=== PATIENT | male | born 1955 | race Caucasian/White ===

== ENCOUNTER 2016-09-28 19:31 | Emergency (ER) | payer OTHER ==
[2016-09-28 19:44] VITALS: BP 133/99
[2016-09-28] MEDS ORDERED: Lidocaine 1% with EPINEPHrine 1:100,000 50 ML MDV INFILT ONE (20:25)
[2016-09-28] MEDS ORDERED: Bacitracin Oint 1 GM U/D Packet TOP ONE (21:56)
--- NOTE | 2016-09-28 22:13 | EDM.PDOC ---
[id number] PAIN Time Seen by Provider: 09/28/16 20:23 Source: Reports: Patient, RN notes reviewed History Limitations: Reports: No limitations - History of Present Illness INITIAL COMMENTS - FREE TEXT/NARRATIVE: Here with his Chief complaint Chainsaw injury left knee HPI 60-year-old male with clearing trees on his property at home when he accidentally touched a chainsaw to his left knee. It cut through his pants. Immunization status up to date Minimal bleeding and minimal pain from the left knee, still able to weight-bear. No other injuries. - Related Data Allergies Allergy/AdvReac Type Severity Reaction Status Date / Time peanut Allergy Severe Swelling Verified 08/21/14 11:26 strawberry Allergy Severe Swelling Verified 08/21/14 11:26 venom-honey bee Allergy Severe Seizure Verified 08/21/14 11:26 [bee venom (honey bee)] *root vegetables Allergy Severe Swelling Uncoded 08/21/14 11:26 Home Meds: Ambulatory Orders Medication Instructions Recorded Confirmed Benazepril/Hydrochlorothiazide 1 tab PO DAILY 02/16/14 09/28/16 [Benazepril-HCTZ 20-12.5 MG] EPINEPHrine [Epipen] 0.3 mg IM ASDIRECTED PRN 02/16/14 09/28/16 Latanoprost [Latanoprost] 1 drop IO BEDTIME 02/16/14 09/28/16 Omeprazole [Omeprazole] 1 cap PO DAILY PRN 02/16/14 09/28/16 Timolol Maleate 1 drop IO DAILY 02/16/14 09/28/16 Aspirin [Children's Aspirin] 81 mg PO DAILY 08/21/14 09/28/16 Hydrocodone/Acetaminophen 12 each PO Q4H PRN #10 tablet 09/28/16 [Hydrocodon-Acetaminophen 5-325] Past Medical History Cardiovascular History: Reports: High cholesterol Gastrointestinal History: Reports: GERD Psychiatric History: Reports: Depression Dermatologic History: Reports: Eczema, Psoriasis - Past Surgical History GI Surgical History: Reports: Hernia, inguinal Social & Family History - Tobacco Use Smoking Status *Q: Never Smoker Second Hand Smoke Exposure: No - Caffeine Use Caffeine Use: Reports: Coffee, Soda, Tea - Alcohol Use Days Per Week of Alcohol Use: 0 - Recreational Drug Use Recreational Drug Use: No ED ROS GENERAL - Review of Systems Review Of Systems: ROS reveals no pertinent complaints other than HPI. GI/Abdominal: Reports: No symptoms Skin: Reports: other (Laceration left knee) Neurological: Reports: No Symptoms ED EXAM, SKIN/RASH Exam: See Below Exam Limited By: No limitations General Appearance: alert, no apparent distress (First), other ( mild tachycardia, aapprehensive about being here but no difficulty speaking or breathing and his mood is normal) Respiratory/Chest: no respiratory distress, no accessory muscle use Cardiovascular: regular rate, rhythm, tachycardia Extremities: other (Wound, see below, left knee) Neurological: alert, oriented, no motor/sensory deficits Skin: Other (7 cm regular laceration over the anterior aspect of the left patella. Normal range of motion.Normal distal sensation capillary refill. No edema.) Lymphatic: no adenopathy ED SKIN PROCEDURES - Additional/Other Procedure(s) Other (Free Text) Procedure(s): Cleaning/Department of laceration left knee Wound was infiltrated with 1% lidocaine with epinephrine total 10 mL Wound cleansed with Hibiclens and Water by RN and then inspected by myself. Wound is into subcutaneous fat but there is no disruption of the fascia below the fat, no compromise of the joint or bursal space. No tendon or vascular involvement. Some shreds of skin were divided using sharp scissors. Wound closed with bacitracin and dressing, no sutures to to the right in nature and risk of infection Procedure a cleaning well tolerated by patient Course - Vital Signs Last Recorded V/S: Last Vital Signs Temp 36.6 C 09/28/16 19:40 Pulse 120 H 09/28/16 19:40 Resp 18 09/28/16 19:40 BP 133/99 H 09/28/16 19:40 Pulse Ox 96 09/28/16 19:40 - Orders/Labs/Meds Orders: Active Orders 24 hr Category Date Time Status [facility]INA Bandage [Elastic Wrap] [OM.PC] Routine Oth 09/28/16 20:45 Ordered Meds: Medications Discontinued Medications Generic Name Dose Route Start Last Admin Trade Name Freq PRN Reason Stop Dose Admin Bacitracin 1 dose 09/28/16 21:56 09/28/16 22:11 Bacitracin Oint 1 Gm TOP 09/28/16 21:57 1 dose ONETIME ONE Administration Lidocaine/Epinephrine 10 ml 09/28/16 20:25 09/28/16 21:29 Xylocaine 1% With Epinephrine 1:100,000 INFILT 09/28/16 20:26 5 ml ONETIME ONE Administration - Re-Assessments/Exams Free Text/Narrative Re-Assessment/Exam: 09/28/16 23:52 60-year-old male with laceration to left knee by chaseaw. Some contamination of the wound with dirt and oil, cleansed under anesthesia, see procedure note above. Dressed per RN. Daily wound care, see instructions below. No preventive antibiotics but should get rechecked promptly if signs of infection occur Prescribed some hydrocodone tablets in case he develops significant pain later. Departure - Departure Time of Disposition: 22:11 Disposition: Home, Self-Care 01 Condition: good Clinical Impression: Laceration of left knee without foreign body Qualifiers: Encounter type: initial encounter Qualified Code(s): S81.012A - Laceration without foreign body, left knee, initial encounter Prescriptions: Hydrocodone/Acetaminophen [Hydrocodon-Acetaminophen 5-325] 12 each PO Q4H PRN # 10 tablet PRN Reason: Moderate to severe pain Instructions: Laceration Care, Adult, [id number] Referrals: Wong Uriarte PA-C [Primary Care Provider] - Forms: ED Department Discharge Additional Instructions: Change dressing daily Wash wound at least once daily, his bandages 3 change and wash more often. Have the wound rechecked by her physician within the next week Return to emergency if you have significant pain, increased swelling, red streaks going up the leg, bad over from the wound or cloudy discharge from the wound. - My Orders Last 24 Hours: My Active Orders 09/28/16 20:45 VALENTINA Bandage [Elastic Wrap] [OM.PC] Routine - Assessment/Plan Last 24 Hours: My Active Orders 09/28/16 20:45 VALENTINA Bandage [Elastic Wrap] [OM.PC] Routine
== END 2016-09-28 22:25 | disposition home or self-care (01) ==
LOC: JP.ED 19:31
DX: S81.012A Laceration without foreign body, left knee, initial encounter (principal); K21.9 Gastro-esophageal reflux disease without esophagitis; F32.9 Major depressive disorder, single episode, unspecified; E78.00 Pure hypercholesterolemia, unspecified; Z98.890 Other specified postprocedural states; Z79.82 Long term (current) use of aspirin; Z79.899 Other long term (current) drug therapy; Z91.010 Allergy to peanuts; Z91.018 Allergy to other foods; Z91.030 Bee allergy status; W29.3XXA Contact with powered garden and outdoor hand tools and machinery, initial encounter; Y92.009 Unspecified place in unspecified non-institutional (private) residence as the place of occurrence of the external cause
CPT/HCPCS: 99283; A4217

== ENCOUNTER 2020-09-15 18:10 | Emergency (ER) | payer OTHER ==
[2020-09-15 18:27] VITALS: PULSE 84
[2020-09-15] MEDS ORDERED: Ketorolac 60 MG/2 ML SDV IM ONE (18:39)
[2020-09-15] MEDS ORDERED: Cyclobenzaprine 10 MG Tab PO ONE (18:39)
--- NOTE | 2020-09-15 18:43 | EDM.PDOC ---
ED HPI GENERAL MEDICAL PROBLEM - General Chief Complaint: Back Pain or Injury Stated Complaint: RIGHT HIP PAIN Time Seen by Provider: 09/15/20 18:34 Source of Information: Reports: Patient, Family, RN Notes Reviewed History Limitations: Reports: No Limitations - History of Present Illness INITIAL COMMENTS - FREE TEXT/NARRATIVE: 64-year-old gentleman presents emergency department day complaint of low back hip pain on the right side, he admits that he did do a lot of work on Tuesday little bit on Tuesday and went out to do some more work sudden onset of pain he felt like it sudden spasm to the point where he is having difficulty ambulating. Does have a strong family history of abdominal aorta aneurysm underwent ultrasound per his report couple years ago which was negative but he would like to have that evaluated as well. - Related Data Allergies Allergy/AdvReac Type Severity Reaction Status Date / Time peanut Allergy Severe Swelling Verified 08/21/14 11:26 strawberry Allergy Severe Swelling Verified 08/21/14 11:26 venom-honey bee Allergy Severe Seizure Verified 08/21/14 11:26 [bee venom (honey bee)] *root vegetables Allergy Severe Swelling Uncoded 08/21/14 11:26 Home Meds: Home Meds Benazepril/Hydrochlorothiazide [Benazepril-HCTZ 20-12.5 MG] 1 tab PO DAILY 02/16/14 [History] EPINEPHrine [Epipen] 0.3 mg IM ASDIRECTED PRN 02/16/14 [History] Latanoprost 1 drop IO BEDTIME 02/16/14 [History] Omeprazole 1 cap PO DAILY PRN 02/16/14 [History] Timolol Maleate 1 drop IO DAILY 02/16/14 [History] Aspirin [Children's Aspirin] 81 mg PO DAILY 08/21/14 [History] Sertraline [Zoloft] 25 mg PO DAILY 09/15/20 [History] Past Medical History HEENT History: Reports: Impaired Vision Cardiovascular History: Reports: High Cholesterol Gastrointestinal History: Reports: GERD Psychiatric History: Reports: Depression Dermatologic History: Reports: Eczema, Psoriasis - Infectious Disease History Infectious Disease History: Reports: Chicken Pox, Measles, Mumps - Past Surgical History GI Surgical History: Reports: Hernia, Inguinal Social & Family History - Tobacco Use Tobacco Use Status *Q: Never Tobacco User - Caffeine Use Caffeine Use: Reports: Coffee - Recreational Drug Use Recreational Drug Use: No Review of Systems - Review of Systems Review Of Systems: See Below Constitutional: Reports: No Symptoms Respiratory: Reports: No Symptoms Cardiovascular: Reports: No Symptoms GI/Abdominal: Reports: No Symptoms Musculoskeletal: Reports: Joint Pain (Hip pain) ED EXAM, GENERAL - Physical Exam Exam: See Below Free Text/Narrative:: Examination hip he does have some point tenderness low back buttocks region right side flexion and extension do not elicit any pain but however he is tender with internal and external rotation Exam Limited By: No Limitations General Appearance: Alert, WD/WN, No Apparent Distress Respiratory/Chest: No Respiratory Distress GI/Abdominal: Soft, Non-Tender, No Distention, No Mass Course - Vital Signs Last Recorded V/S: Last Vital Signs Temp 97.8 F 09/15/20 19:28 Pulse 84 09/15/20 19:28 Resp 18 09/15/20 19:28 BP 132/95 H 09/15/20 19:28 Pulse Ox 96 09/15/20 19:28 - Orders/Labs/Meds Labs: Laboratory Tests 09/15/20 Range/Units 18:54 D-Dimer, Quantitative 366.87 (0.0-500.0) ng/mL Meds: Medications Discontinued Medications Generic Name Dose Route Start Last Admin Trade Name Freq PRN Reason Stop Dose Admin Cyclobenzaprine HCl 10 mg 09/15/20 18:39 09/15/20 18:51 Cyclobenzaprine 10 Mg Tab PO 09/15/20 18:40 10 mg ONETIME ONE Administration Ketorolac Tromethamine 60 mg 09/15/20 18:39 09/15/20 18:51 Ketorolac 60 Mg/2 Ml Sdv IM 09/15/20 18:40 60 mg ONETIME ONE Administration Departure - Departure Time of Disposition: 20:07 Disposition: Home, Self-Care 01 Condition: Fair Clinical Impression: Right hip pain - Discharge Information Instructions: Musculoskeletal Pain Referrals: Juancho Colmenares NP [Primary Care Provider] - Forms: ED Department Discharge Additional Instructions: Continue to use the Toradol as needed for pain control try the Flexeril as needed for muscle spasms, please followup with your primary care provider in 3- 5 days if not better, please call return to the emergency department with worsening of symptoms. Sepsis Event Note (ED) - Focused Exam Vital Signs: Vital Signs Temp Pulse Resp BP Pulse Ox 09/15/20 19:28 97.8 F 84 18 132/95 H 96 09/15/20 19:27 132/95 H 09/15/20 18:26 97.8 F 84 18 176/107 H 96 - Assessment/Plan Plan: Assessment Acuity = acute Site and laterality = right hip pain Etiology = secondary to overuse injury Manifestations = none Location of injury = Home Lab values = D-dimer within normal limits Plan Good improvement with combination Flexeril and Toradol, continue to use Toradol 1 tab p.o. 3 times daily as needed 10 mg total #20 and Flexeril 1 tab p.o. 3 times daily as needed 10 mg total #15 This note was dictated using [employer] voice recognition software please call with any questions on syntax or grammar.
[2020-09-15 19:28] VITALS: BP 132/95
== END 2020-09-15 20:19 | disposition home or self-care (01) ==
LOC: JP.ED 18:10
DX: M25.551 Pain in right hip (principal); K21.9 Gastro-esophageal reflux disease without esophagitis; Z91.010 Allergy to peanuts; Z91.018 Allergy to other foods; Z91.030 Bee allergy status; Z79.899 Other long term (current) drug therapy
CPT/HCPCS: 36415; 85379; 96372; 99283; A9270; J1885

== ENCOUNTER → 2021-08-13 | Day surgery (SDC) | payer OTHER ==
[~2021-08-13] MED LIST: Atropine 0.4 MG/ML SDV ONE; Midazolam 1 MG/ML 2 ML SDV ONE; Propofol 200 MG/20 ML SDV ONE; Sodium Chloride 0.9% 1,000 ML IV SCH; fentaNYL 100 MCG/2 ML SDV ONE
[2021-08-13 11:49] VITALS: BP 92/63; PULSE 97
== END ==
LOC: JP.SDS 07:40
PROVIDERS: ATTEND Surgery
DX: Z12.11 Encounter for screening for malignant neoplasm of colon (principal); K62.1 Rectal polyp; K57.30 Diverticulosis of large intestine without perforation or abscess without bleeding; I12.9 Hypertensive chronic kidney disease with stage 1 through stage 4 chronic kidney disease, or unspecified chronic kidney disease; E11.22 Type 2 diabetes mellitus with diabetic chronic kidney disease; N18.9 Chronic kidney disease, unspecified; K21.9 Gastro-esophageal reflux disease without esophagitis
CPT/HCPCS: 82947; 88305; J0461; J2250; J2704; J3010; J7030